=== PATIENT | female | born 1985 | race Caucasian/White ===

== ENCOUNTER 2016-11-23 06:38 | Inpatient (IN) | payer MEDICAID, OTHER ==
[~2016-11-23] VITALS: Wt 47.2 kg
[2016-11-23] VITALS (18 sets, daily range): BP systolic 91–120; BP diastolic 54–81; PULSE 50–56; RESP 12–20; TEMP 98.5
[~2016-11-23 06:38] MED LIST: PNV1TABL4 PO
[2016-11-23] MEDS ORDERED: ONDANSETRON 4 MG INJ IV STA ×2 (07:19→10:43)
[2016-11-23] MEDS ORDERED: morphine 4 MG/ML VIAL IV STA ×2 (07:19→10:42)
[2016-11-23] MEDS ORDERED: SOD CHLORIDE 0.9% 1,000 ML IV STA ×2 (07:19→10:14)
[2016-11-23 07:57] LABS: BASOPHILS % 0.2 % (0.0-2.0); EOSINOPHILS % 0.1 % (0.0-7.0); HEMATOCRIT 37.9 % (37.0-47.0); HEMOGLOBIN 12.7 g/dl (12.0-16.0); LYMPHOCYTES # 0.9 10^3/ul (0.8-2.9); LYMPHOCYTES % 6.8 % (15.0-51.0); MEAN CORPUSCULAR HEMOGLOBIN 30.6 pg (29.0-33.0); MEAN CORPUSCULAR HGB CONC 33.5 g/dl (32.0-37.0); MEAN CORPUSCULAR VOLUME 91.2 fl (82.0-101.0); MEAN PLATELET VOLUME 8.1 fl (7.4-10.4); MONOCYTE # 0.6 10^3/ul (0.3-0.9); MONOCYTES % 4.9 % (0.0-11.0); PLATELET COUNT 269 10^3/UL (140-440); RED BLOOD COUNT 4.16 10^6/ul (4.20-5.40); UNCORRECTED WBC 12.5 10^3/ul (4.8-10.8); WHITE BLOOD COUNT 12.5 10^3/ul (4.8-10.8)
[2016-11-23 08:00] LABS: CONDITION 1
[2016-11-23 08:03] LABS: ALBUMIN 4.3 g/dl (3.3-4.9)
[2016-11-23 08:04] LABS: POTASSIUM 4.4 mmol/L (3.5-5.1)
[2016-11-23 08:06] LABS: ALBUMIN/GLOBULIN RATIO 1.19; BILIRUBIN,INDIRECT 0.5 mg/dl (0-1.1); BILIRUBIN,TOTAL 0.5 mg/dl (0.2-1.3); CREATININE 0.56 mg/dl (0.44-1.00); TOTAL PROTEIN 7.9 g/dl (6.1-8.1)
[2016-11-23 08:07] LABS: CALCIUM 9.5 mg/dl (8.4-10.2)
--- NOTE | 2016-11-23 09:43 | RADRPT ---
PROCEDURE: CT Abdomen and Pelvis without contrast. CLINICAL INDICATION: Abdominal pelvic pain. Vomiting. TECHNIQUE: CT scan of the abdomen and pelvis without contrast was performed on a multidetector hig h-resolution CT scanner. The patient was scanned without intravenous contrast. Coronal and sagittal reformatted images were obtained from the axial source images. Images were reviewed on a high-resol [employer] PACS workstation. The total exam CTDI equals 5.20 mGy and the total exam DLP equals 254.80 mGy -cm. One or more of the following dose reduction techniques were used: - Automated exposure control. - Adjustment of the mA and/or kV according to patient size. - Use of iterative reconstruction technique. COMPARISON: None. FINDINGS: CT abdomen: Study is limited due to lack of oral and IV contrast. The lung bases are clear. The heart size is normal, without pericardial thickening or effusion. Th e liver is normal in size and density without focal mass or intrahepatic biliary dilatation. The sp douglas is normal in size and homogeneous in density. The stomach is partially collapsed, but is gross ly unremarkable. The pancreas as visualized is normal. The gallbladder and biliary tree are unrema rkable and there is no evidence for biliary dilatation. The adrenal glands are symmetric and normal . The kidneys are symmetrically unremarkable as well. No renal calculus or obstructive uropathy or mass lesion is seen. The aorta is of normal caliber. Aortic vascular calcifications are present. There is no retroperit gardner lymphadenopathy. The jade hepatis region is clear. The bowel and mesentery, as visualized, are equally unremarkable. CT pelvis: The small bowel loops situated within the pelvis are unremarkable. Retrocecal appendix is identified which is minimally thickened and inflamed with minimal nas-appendiceal inflammatory changes. Find ings are consistent with early acute appendicitis. Again, evaluation is suboptimal due to lack of o ral and IV contrast. The pelvic organs are normal. The pelvic sidewalls and inguinal regions are cl ear. The sigmoid colon and rectum are unremarkable. No mass or adenopathy is seen. Minimal layerin g free fluid is present. No acute inflammation is identified at this time. The surrounding osseous structures are unremarkable. No osteolytic or osteoblastic lesion is detect ed. IMPRESSION: 1. Findings consistent with acute retrocecal appendicitis. 2. Mild free fluid seen layering within the pelvis. RPTAT: HMJB .Eugenio Liriano MD, MD Date Time Electronically viewed and signed by .Eugenio Liriano MD, MD on 11/23/2016 09:42 .B/
--- NOTE | 2016-11-23 10:02 | ERA ---
ER Documentation Chief Complaint Date/Time DATE: 11/23/16 TIME: 09:57 Chief Complaint Abdominal pain that started last night HPI 31-year-old female with no significant past medical history presents to the ED complaining of right and left lower quadrant pain that started last night. States that it is associated with a few episodes of nonbilious nonbloody vomiting. States that she was experiencing discomfort at 8 PM last night and started to have worsening pain at 1 AM. Pain does not radiate. Unsure what makes it worse. Describes the pain as an achy, sharp pain and rates it a 9 out of 10. States that her last menses was on November 05, 2015. Denies any flank pain, dysuria, urgency, frequency, hematuria, diarrhea, chest pain, shortness of breath, weakness, dizziness, vaginal discharge, vaginal bleeding. ROS All systems reviewed and are negative except as per history of present illness. Medications Home Meds Reported Medications Pnv Cmb#95/Ferrous Fumarate/Fa ( MULTIVITAMINS TABLET) 1 Each Tablet, 1 EACH PO 09/04/13 Allergies Allergies: Coded Allergies: No Known Allergies (Verified Allergy, 09/04/13) PMhx/Soc Medical and Surgical Hx: pt denies Medical Hx, pt denies Surgical Hx History of Surgery: No Anesthesia Reaction: No Hx Neurological Disorder: No Hx Respiratory Disorders: No Hx Cardiac Disorders: No Hx Psychiatric Problems: No Hx Miscellaneous Medical Probl: No Hx Alcohol Use: No Hx Substance Use: No Hx Tobacco Use: No Smoking Status: Never smoker Physical Exam Vitals Vital Signs Date Time Temp Pulse Resp B/P Pulse Ox O2 Delivery O2 Flow Rate FiO2 11/23/16 06:43 98.5 73 20 99/56 98 Physical Exam Const: Fol-fwb-[id number], well-nourished. In no acute distress. Head: Atraumatic, normocephalic Eyes: Normal Conjunctiva without injection. No purulent discharge. ENT: Normal external ear, nose. Moist oropharynx without tonsillar exudates. Non -erythematous pharynx. Uvula midline. No drooling. No trismus. Neck: No cervical midline tenderness. Full range of motion. No meningismus. No cervical lymphadenopathy. No JVD. Resp: Clear to auscultation bilaterally. No wheezing, rhonchi, rales, or crackles. No accessory muscle use. No retractions. Cardio: Regular rate and rhythm. No murmurs, rubs or gallops. Abd: Soft, tenderness to palpation of the right and left lower quadrant, non distended. Normal bowel sounds. No palpable masses. Slight rebound tenderness. No guarding. Positive McBurney's point. Positive psoas sign. Positive obturator sign. Skin: No petechiae or rashes Back: No midline tenderness. No CVA tenderness. Ext: No cyanosis, or edema. Neur: Awake and alert. Normal gait. Normal coordination. Psych: Normal Mood and Affect Result Diagram: 11/23/1672011/23/16720 Results 24 hrs Laboratory Tests Test 11/23/16 07:21 Alanine Aminotransferase (ALT/SGPT) 22IU/L Albumin 4.3g/dl Albumin/Globulin Ratio 1.19 Alkaline Phosphatase 41IU/L Anion Gap 17 Aspartate Amino Transf (AST/SGOT) 39IU/L Basophils # 0.010^3/ul Basophils % 0.2% Blood Urea Nitrogen 12mg/dl Calcium Level 9.5mg/dl Carbon Dioxide Level 28mmol/L Chloride Level 101mmol/L Creatinine 0.56mg/dl Direct Bilirubin 0.00mg/dl Eosinophils # 0.010^3/ul Eosinophils % 0.1% Globulin 3.60g/dl Glucose Level 93mg/dl Hematocrit 37.9% Hemoglobin 12.7g/dl Indirect Bilirubin 0.5mg/dl Lipase 55U/L Lymphocytes # 0.910^3/ul Lymphocytes % 6.8% Mean Corpuscular Hemoglobin 30.6pg Mean Corpuscular Hemoglobin Concent 33.5g/dl Mean Corpuscular Volume 91.2fl Mean Platelet Volume 8.1fl Monocytes # 0.610^3/ul Monocytes % 4.9% Neutrophils # 11.010^3/ul Neutrophils % 88.0% Nucleated Red Blood Cells # 0.010^3/ul Nucleated Red Blood Cells % 0.0/100WBC Platelet Count 53215^3/UL Potassium Level 4.4mmol/L Red Blood Count 4.1610^6/ul Red Cell Distribution Width 12.0% Sodium Level 142mmol/L Total Bilirubin 0.5mg/dl Total Protein 7.9g/dl White Blood Count 12.510^3/ul Current Medications Medications (Trade) Dose Ordered Sig/Cynthia Route PRN Reason Start Time Stop Time Status Last Admin Dose Admin Sodium Chloride (NS) 1,000 ml @ 1,000 mls/hr Q1H STAT IV 11/23/16 07:19 11/23/16 08:18 DC 11/23/16 07:33 Morphine Sulfate (morphine) 4 mg ONCE STAT IV 11/23/16 07:19 11/23/16 07:21 DC 11/23/16 07:32 Ondansetron HCl 4 mg 4 mg ONCE STAT IV 11/23/16 07:19 11/23/16 07:21 DC 11/23/16 07:32 Ceftriaxone Sodium 50 ml @ 100 mls/hr ONCE ONCE IVPB 11/23/16 10:30 11/23/16 10:59 Sodium Chloride (NS) 1,000 ml @ 1,000 mls/hr Q1H STAT IV 11/23/16 10:14 11/23/16 11:13 Procedures/MDM 31-year-old female with no significant past medical history presents to the ED complaining of left and right lower quadrant pain. Patient is afebrile and nontoxic-appearing. Patient has normal vital signs. Patient was further worked up with CBC, CMP, lipase, UA, urine , CT of the abdomen and pelvis without contrast. Patient's pain and symptoms have improved after treatment with 4 mg IV morphine, 4 mg IV Zofran, 1 L normal saline. A differential diagnosis considered includes but is not limited to gastritis, GERD, peptic ulcer disease, cholecystitis, choledocholithiasis, cholangitis, pancreatitis, appendicitis, bowel obstruction, ileus, volvulus, nephrolithiasis , pyelonephritis, hepatitis, perforated viscus, diverticulitis, abdominal hernia , acute abdomen, mesenteric ischemia or other emergent conditions. CBC: Slight leukocytosis of 12.5. No e/o anemia. CMP: No e/o severe acidosis, alkalosis, renal failure, diabetic ketoacidosis, liver disease Lipase within normal limits. Urine : Negative PROCEDURE: CT Abdomen and Pelvis without contrast. CLINICAL INDICATION: Abdominal pelvic pain. Vomiting. TECHNIQUE: CT scan of the abdomen and pelvis without contrast was performed on a multidetector high-resolution CT scanner. The patient was scanned without intravenous contrast. Coronal and sagittal reformatted images were obtained from the axial source images. Images were reviewed on a high-resolution PACS workstation. The total exam CTDI equals 5.20 mGy and the total exam DLP equals 254.80 mGy-cm. One or more of the following dose reduction techniques were used: - Automated exposure control. - Adjustment of the mA and/or kV according to patient size. - Use of iterative reconstruction technique. COMPARISON: None. FINDINGS: CT abdomen: Study is limited due to lack of oral and IV contrast. The lung bases are clear. The heart size is normal, without pericardial thickening or effusion. The liver is normal in size and density without focal mass or intrahepatic biliary dilatation. The spleen is normal in size and homogeneous in density. The stomach is partially collapsed, but is grossly unremarkable. The pancreas as visualized is normal. The gallbladder and biliary tree are unremarkable and there is no evidence for biliary dilatation. The adrenal glands are symmetric and normal. The kidneys are symmetrically unremarkable as well. No renal calculus or obstructive uropathy or mass lesion is seen. The aorta is of normal caliber. Aortic vascular calcifications are present. There is no retroperitoneal lymphadenopathy. The jade hepatis region is clear. The bowel and mesentery, as visualized, are equally unremarkable. CT pelvis: The small bowel loops situated within the pelvis are unremarkable. Retrocecal appendix is identified which is minimally thickened and inflamed with minimal nas-appendiceal inflammatory changes. Findings are consistent with early acute appendicitis. Again, evaluation is suboptimal due to lack of oral and IV contrast. The pelvic organs are normal. The pelvic sidewalls and inguinal regions are clear. The sigmoid colon and rectum are unremarkable. No mass or adenopathy is seen. Minimal layering free fluid is present. No acute inflammation is identified at this time. The surrounding osseous structures are unremarkable. No osteolytic or osteoblastic lesion is detected. IMPRESSION: 1. Findings consistent with acute retrocecal appendicitis. 2. Mild free fluid seen layering within the pelvis. Patient has acute retrocecal appendicitis noted on her CT scan. Leukocytosis of 12.5 noted. This case was discussed with my supervising physician, Dr. Heaton. We both agreed that patient needed to be admitted at this time. These findings were discussed with the patient at this time. Patient agreed to be admitted. Her questions were answered. Patient is hemodynamically stable. Patient will now be under the care of Dr. Heaton. Departure Diagnosis: Primary Impression: Appendicitis Qualified Code: K35.80 - Acute appendicitis, unspecified acute appendicitis type Condition: NEIL Kraus PA-C Nov 23, 2016 10:02
[2016-11-23 10:25] LABS: ADD UMIC YES; URINE BILIRUBIN (Dip) NEGATIVE (NEGATIVE); URINE BLOOD (Dip) NEGATIVE (NEGATIVE); URINE COLOR LT. YELLOW (YELLOW); URINE GLUCOSE (Dip) NEGATIVE (NEGATIVE); URINE KETONES (Dip) 40 (NEGATIVE); URINE LEUKOCYTE ESTERASE (Dip) NEGATIVE (NEGATIVE); URINE NITRITE (Dip) NEGATIVE (NEGATIVE); URINE TOTAL PROTEIN (Dip) TRACE (NEGATIVE); URINE UROBILINOGEN (Dip) 0.2 E.U./dL (0.1-1.0)
[2016-11-23] MEDS ORDERED: SOD CHLORIDE 0.9% 1,000 ML IV SCH (10:30)
[2016-11-23] MEDS ORDERED: ACETAMINOPHEN 325 MG TAB PO PRN ×2 (10:30→11:30)
[2016-11-23] MEDS ORDERED: ONDANSETRON 4 MG INJ IV PRN ×3 (10:30→17:30)
[2016-11-23] MEDS ORDERED: CEFTRIAXONE 1 GM/50 ML (PMX) 50 ML IVPB ONE (10:30)
--- NOTE | 2016-11-23 10:32 | EN ---
Date/Time of Note Date/Time of Note DATE: 11/23/16 TIME: 10:32 ER Progress Note I was told by the patient in ER to with appendicitis. This patient is hemodynamically stable. I have contacted our admitting physician, Dr. De Luna who is okay with the admission. The surgeon is Dr. Marshall. This patient is scheduled for OR today at 4 PM. She will be kept n.p.o. She was given Rocephin. Patient and family are aware. BARBIE SALDANA DO Nov 23, 2016 10:32
[2016-11-23 10:58] LABS: SQUAMOUS EPITHELIAL CELL,UR FEW; URINE RBCS NONE SEEN /HPF (0)
[2016-11-23] MEDS ORDERED: ACETAMINOPHEN 650 MG SUPP PR PRN (11:30)
[2016-11-23] MEDS ORDERED: DOCUSATE SODIUM 100 MG CAP PO PRN ×3 (11:30→17:30)
[2016-11-23] MEDS ORDERED: morphine 2 MG INJ IV PRN (11:30)
[2016-11-23] MEDS ORDERED: NACL 0.9% 3 ML SYG IV SCH (11:30)
[2016-11-23] MEDS: DEXTROSE 5%-0.45% NACL 1,000 ML IV SCH ×2 (13:15→21:25)
[2016-11-23] MEDS ORDERED: CEFAZOLIN 1 GM/50 ML (PMX) 50 ML IVPB SCH (14:00)
--- NOTE | 2016-11-23 14:54 | CONS ---
Date/Time of Note Date/Time of Note DATE: 11/23/16 TIME: 14:46 Assessment/Plan Assessment/Plan Additional Assessment/Plan [facility] INITIAL INPATIENT CONSULTATION NOTE ASSESSMENT AND PLAN: A very-pleasant otherwise health 31-year-old lady, presenting with what appears to be acute appendicitis. I recommended laparoscopic, possible open, appendectomy. I explained the operation as well as the rationale behind my management to the patient and her and answered all of their questions to the best my ability. I believe that they understand and wish to proceed. With above assessment, I've recommended the followin. To the operating room for laparoscopic, possible open appendectomy Thank you very much for having me involved in the care of this very pleasant lady and her wonderful family. I will continue to follow her along with you closely and will be available to answer any questions at [phone]. TOTAL VISIT TIME: 45 minutes of which more than half was spent in [id number] discussion with the patient, discussions with family, as well as coordination of care between multiple physicians and providers. Disclaimer: Inadvertent spelling and grammatical errors are likely due to EHR/ dictation software use and do not reflect on the quality of delivered patient care. Also, please note that the electronic time recorded on this node does not necessarily reflect the actual time of the visit. PLACE OF SERVICE: [facility], sixth floor DATE OF CONSULTATION: 11/23/2016 HISTORY OF PRESENT ILLNESS: The patient is a very pleasant otherwise healthy 31 -year-old lady, admitted to [facility] through ED with RLQ abdominal pain of a few hours duration; + N/V; no other major complaints; no prior episodes; no prior abdominal surgery, but no issues with post operative complications after liposuction and L wrist surgery. No blood in the stool or urine. Workup included laboratory values showing elevated white blood cell count and a CT scan that showed evidence for appendicitis. Patient does not report any hematemesis or blood in the stool or urine. Last bowel movement was yesterday as well as flatus. No reported chronic issues with constipation or diarrhea. No changes in hearing or vision, difficulty with breathing or swallowing, prior cardiopulmonary disease new skin rashes, joint pain, musculoskeletal disease, neurologic, psychiatric, or psychologic problems. Patient described the pain as a localized RLQ type pain without radiation, between 8 to 10 out of 10 in severity and mostly dull in character. At my visit, the patient did have significant pain complaints. No major EtOH. No prior biliary problems. No prior pancreatitis. PAST MEDICAL HISTORY None PAST SURGICAL HISTORY 1. L wrist surgery for trauma in 4th grade 2. Liposuction ALLERGIES: NO KNOWN DRUG ALLERGIES MEDICATIONS None SOCIAL HISTORY: The patient lives with and 3 y/o child. 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 - Tob; - ETOH; - IVDU FAMILY HISTORY: There are no significant medical, surgical or oncologic issues in the family as reported by the patient or reflected in the chart. REVIEW OF SYSTEMS: No other pertinent positives or pertinent negatives in a complete 14 point review of systems PHYSICAL EXAMINATION GENERAL: The patient appears to be a very pleasant AsianAmerican lady of Non- descent lying in bed, appearing stated age, BMI unavailable, but fairly fit (~20) and otherwise in no acute distress. VITAL SIGNS: AVSS (please also see below) HEENT: Normocephalic and atraumatic. Extraocular muscles and hearing are grossly intact bilaterally and symmetrically. Sclerae are nonicteric. Oral cavity is clear; oral mucosa appear to be pink and moist. Dentition: fair. NECK: Supple. There is no lymphadenopathy or JVD. There is no submental, submandibular or supraclavicular lymphadenopathy. CHEST: Rises symmetrically with each breath; patient is breathing comfortably. There are no audible wheezes, rales or rhonchi on the gross exam. HEART: Pulse is regular and palpable on the right wrist. Capillary refill is normal. Carotid pulses are palpable bilaterally and symmetrically in the neck. EXTREMITIES: Lower extremities contain no pitting edema around the ankles bilaterally and symmetrically. ABDOMEN: Abdomen is soft, mild to moderately tender in the RLQ abdomen and nondistended. No evidence of ascites, organomegaly, caput medusae, engorged subcutaneous veins, or other abnormalities. There are no peritoneal signs or guarding. SKIN: Appears to be pink and feels warm to touch. NEUROLOGIC: Awake, alert, and follows commands appropriately. LABORATORY DATA: See below IMAGING: See electronic chart. Please note that I've personally reviewed all pertinent available images and I agree in general with their overall reported findings. Consultation Date/Type/Reason Admit Date/Time Nov 23, 2016 at 10:31 Social History Smoking Status: Never smoker Exam/Review of Systems Vital Signs Vitals Vital Signs Date Time Temp Pulse Resp B/P Pulse Ox O2 Delivery O2 Flow Rate FiO2 11/23/16 11:40 98.5 53 20 85/52 100 Room Air Results Result Diagram: 11/23/16 0721 11/23/16 0721 Results 24 hrs Laboratory Tests Test 11/23/16 07:21 11/23/16 09:19 Alanine Aminotransferase (ALT/SGPT) 22 Albumin 4.3 Albumin/Globulin Ratio 1.19 Alkaline Phosphatase 41 L Anion Gap 17 H Aspartate Amino Transf (AST/SGOT) 39 Basophils # 0.0 Basophils % 0.2 Blood Urea Nitrogen 12 Calcium Level 9.5 Carbon Dioxide Level 28 Chloride Level 101 Creatinine 0.56 Direct Bilirubin 0.00 Eosinophils # 0.0 Eosinophils % 0.1 Globulin 3.60 H Glucose Level 93 Hematocrit 37.9 Hemoglobin 12.7 Indirect Bilirubin 0.5 Lipase 55 Lymphocytes # 0.9 Lymphocytes % 6.8 L Mean Corpuscular Hemoglobin 30.6 Mean Corpuscular Hemoglobin Concent 33.5 Mean Corpuscular Volume 91.2 Mean Platelet Volume 8.1 Monocytes # 0.6 Monocytes % 4.9 Neutrophils # 11.0 H Neutrophils % 88.0 H Nucleated Red Blood Cells # 0.0 Nucleated Red Blood Cells % 0.0 Platelet Count 269 Potassium Level 4.4 Red Blood Count 4.16 L Red Cell Distribution Width 12.0 Sodium Level 142 Total Bilirubin 0.5 Total Protein 7.9 White Blood Count 12.5 H Urine Bilirubin NEGATIVE Urine Clarity CLEAR Urine Color LT. YELLOW Urine Glucose NEGATIVE Urine Hemoglobin NEGATIVE Urine Ketones 40 Urine Leukocyte Esterase NEGATIVE Urine Microscopic RBC NONE SEEN Urine Microscopic WBC 0-2 Urine Nitrite NEGATIVE Urine Specific Moffat 1.015 Urine Squamous Epithelial Cells FEW Urine Total Protein TRACE Urine Urobilinogen 0.2 E.U./dL Urine pH 8.5 Medications Medications Current Medications Dextrose/Sodium Chloride (D5-1/2ns) 1,000 ml @ 100 mls/hr Q10H IV Last administered on 11/23/16t 13:15; Admin Dose 100 MLS/HR; Start 11/23/16 at 11:25 Ondansetron HCl (Zofran Inj) 4 mg Q6H PRN IV NAUSEA AND/OR VOMITING; Start at 11:30 Acetaminophen (Tylenol Tab) 650 mg Q6H PRN PO PAIN LEVEL 1-3 OR FEVER; Start at 11:30 Acetaminophen (Tylenol Supp) 650 mg Q6H PRN CO PAIN LEVEL 1-3 OR FEVER; Start 11/23/16 at 11:30 Morphine Sulfate (morphine) 2 mg Q4H PRN IV SEVERE PAIN LEVEL 7-10; Start 11/23 at 11:30 Docusate Sodium (Colace) 100 mg Q12H PRN PO CONSTIPATION; Start 11/23/16 at 11: 30 Pantoprazole 40 mg 40 mg DAILY@06 PO ; Start 11/24/16 at 06:00 Cefazolin Sodium (Ancef 1 Gm/50 ml (Pmx)) 50 ml @ 100 mls/hr Q8 IVPB ; Start at 14:00 ELVIN CEE M.D. Nov 23, 2016 14:54
[2016-11-23] MEDS ORDERED: PROPOFOL 20 ML ONE (15:16)
[2016-11-23] MEDS ORDERED: CEFAZOLIN 1 GM INJ ONE (15:16)
[2016-11-23] MEDS ORDERED: LIDOCAINE 2% (SDV) 5 ML INJ ONE (15:16)
[2016-11-23] MEDS ORDERED: ROCURONIUM 50 MG INJ ONE (15:16)
[2016-11-23] MEDS ORDERED: MIDAZOLAM 1 MG/ML 2 ML INJ ONE (15:16)
[2016-11-23] MEDS ORDERED: SUCCINYLCHOLINE CHLORIDE 100 MG/5 ML SYG IV ONE (15:16)
[2016-11-23] MEDS ORDERED: FENTAnyl 50 MCG/ML VIAL ONE (15:17)
[2016-11-23] MEDS ORDERED: ONDANSETRON 4 MG INJ ONE (16:07)
[2016-11-23] MEDS ORDERED: DEXAMETHASONE 4 MG/ML 1 ML INJ ONE (16:07)
[2016-11-23] MEDS ORDERED: PHENYLephrine (100 MCG/ML) 5ML SYG ONE (16:07)
[2016-11-23] MEDS ORDERED: GLYCOPYRROLATE 1 MG INJ ONE (16:09)
[2016-11-23] MEDS: BUPIVACAINE 0.25%/EPI (SDV) 30 ML INJ ONE ×2 (16:37→17:01)
[2016-11-23] MEDS ORDERED: NEOSTIGMINE 3 MG/3 ML SYRINGE ONE (16:40)
--- NOTE | 2016-11-23 17:10 | HP ---
DATE OF ADMISSION: 11/23/2016 MARKETING SERVICES SPECIALIST: General surgery. CHIEF COMPLAINT: Abdominal pain. HISTORY OF PRESENT ILLNESS: This is a 31-year-old female with no significant past medical history w rosangela presents to [facility] secondary to having 1 day of abdominal pain which starte d yesterday evening. The pain is at the right lower quadrant, nonradiating, accompanied with nausea and several episodes of vomiting. The patient is status post having abdominal pain. She consumed some yogurt which then she vomited yogurt. She continued to complain of having abdominal discomfort and presented to [facility] where she was found to have WBC of 12.5. CT abdomen and pelvis showed acute rectocele, appendicitis, mild free fluid layering within the pelvis. The pa tient was started on Rocephin, morphine, Zofran, Tylenol, and normal saline in the course of the [place] rgency room. General surgery was consulted, and the patient was admitted to med/surg. The patient continued to complain of having mild abdominal discomfort without any nausea or vomiting. She denie s any fever, chills, weight gain, or weight loss. Positive for decreased oral intake. No dysuria, hematuria, urgency, incontinence. No change in the color of stool. No recent travel history. No s ick contact. No trauma to the abdomen. No other discomfort. PAST MEDICAL HISTORY: As above per HPI. PAST SURGICAL HISTORY: None. MEDICATIONS: Multivitamin. SOCIAL HISTORY: Negative x3 with smoking, alcohol, illicit drugs. She lives at home with her howie minaya and her . REVIEW OF SYSTEMS: As above per HPI. Otherwise, 12 review of systems has been found to be negative . PHYSICAL EXAMINATION: VITAL SIGNS: Temperature 98.1, pulse 50, respiration 20, blood pressure 92/57, oxygen saturation 10 0% on room air. GENERAL APPEARANCE: The patient is lying in bed comfortably without any distress. She is awake, al ert, oriented. She is able to answer my questions properly. EYES AND ENT: Conjunctivae and lids are normal. Pupils are normal. Extraocular normal. Hearing g rossly normal. Lips are normal. Oral mucosa is dry. NECK: Supple. Trachea is midline. No lymphadenopathy. RESPIRATORY: Effort is normal. Clear to auscultate bilaterally. CARDIOVASCULAR: Normal S1, S2. Regular rhythm and rate. No murmur, no bruits, no edema. Peripher al pulses and radial pulses palpable. Cap refill is normal. CHEST: Normal expansion of thorax during inspiration. GASTROINTESTINAL: Abdomen is soft. Tenderness in the umbilical and right lower quadrant with deep palpation. No guarding, no rebound. GENITOURINARY: Deferred. MUSCULOSKELETAL: Upper and lower extremities within normal limits. Full range of motion, strength 5/5 in both upper and lower extremities. NEUROLOGIC: Cranial nerves II through XII are grossly intact. PSYCHIATRIC: Normal judgment and insight. Alert and oriented x3. Mood and affect is normal. LABORATORY WORK AND IMAGING: WBC 12.5, hemoglobin 10.6, hematocrit 37.9, platelets 269. Sodium 142 , potassium 4.4, chloride 101, bicarbonate 28, BUN 12, creatinine 0.56, glucose 93. LFTs all within normal limits. Urinalysis negative. ASSESSMENT AND PLAN: 1. Acute appendicitis. General surgery has been consulted. The patient has been n.p.o. The patie nt has been treated with Rocephin in the course of the emergency room. We will place the patient on Ancef q. 8 hours. The patient has been set up for laparoscopic versus open appendectomy by general surgery. We will place the patient on pain medication. 2. For deep venous thrombosis prophylaxis, on sequential compression devices. 3. For gastrointestinal prophylaxis, on proton pump inhibitor. 4. We will continue to monitor patient closely. Further recommendations, management, and treatment as per the course. Total amount of time was spent for evaluation of patient and admission workup, 35 minutes. Dictated By: ZEHRA SINGH/LEXIE Conf#: [id number] DID#: [id number]
--- NOTE | 2016-11-23 17:19 | OPR ---
Date/Time of Note Date/Time of Note DATE: 11/23/16 TIME: 17:18 Operative Report Operative Findings [facility] INPATIENT OPERATIVE NOTE PLACE OF SERVICE: [facility] DATE OF SURGERY: 11/23/2016 PREOPERATIVE DIAGNOSIS: 1. Acute appendicitis 2. L wrist surgery for trauma in 4th grade 3. Liposuction POSTOPERATIVE DIAGNOSIS: 1. Acute appendicitis 2. L wrist surgery for trauma in 4th grade 3. Liposuction OPERATION: 1. Laparoscopic appendectomy SURGEON: Elvin Cee M.D. [employer]LEMENT[employer] SCHOOL TEACHER: Yamileth ANESTHESIA: General endotracheal tube anesthesia ANESTHESIOLOGIST: Kian Quinones M.D. BRIEF SUMMARY: An otherwise uncomplicated laparoscopic appendectomy was performed with findings of non-perforated appendicitis. BRIEF HISTORY: The patient is a very pleasant and otherwise healthy 31-year-old lady, presenting with what appears to be acute appendicitis. I recommended laparoscopic, possible open, appendectomy. I met with the patient and family and counseled them regarding the possible options of treatment, and I strongly suggested a laparoscopic, possible open appendectomy. We reviewed the operation in detail as well as the risks, benefits, alternatives, and expected outcomes of this operation. After careful consideration of all the risks, benefits, and alternatives, the patient and family appeared to understand those risks and wished to proceed with surgery. For a detailed report of my consultation with patient and family, please refer to my separate consultation note. STATEMENT OF THE INFORMED CONSENT: The patient and family appeared to understand the risks of the operation to include, but not be limited to risk of postoperative pain and scar tissue, possible infection or bleeding requiring other interventions such as opening the wound, placement of drainage catheters, or other operative interventions; possible injury to surrounding to structures including bowel, bladder, bile duct, or blood vessels, or solid organs such as liver, kidney, or pancreas requiring other interventions or procedures; possible leakage of bowel from anastomotic sites or suture lines causing significant increase in morbidity and mortality and requiring multiple interventions including but not limited to, placement of drainage catheters, imaging studies, as well as operative interventions; possible other source of sepsis such as urinary tract infections or pneumonias, or other sources of potentially life threatening problems such as deep venous thrombus formation causing pulmonary embolism, myocardial arrhythmias and infarctions, and even . After careful consideration of all their options, the patient and family appeared to understand and wished to proceed with surgery. DESCRIPTION OF PROCEDURE: After obtaining informed consent, the patient was brought into the operating room and was placed in a normal supine position, where successful general endotracheal tube anesthesia was performed. Intravenous access was already in place and intravenous antimicrobials had been appropriately chosen and dosed prior to the operation. The patient's abdominal skin was prepped and draped from the nipple line down to the level of the upper thighs in the usual sterile fashion. We then called a surgical time-out where the patient's identification, date of , nature of the operation, allergies , presence of intravenous antimicrobials, presence of needed equipment, and any other concerns were reviewed and agreed upon by all members of the operating room team. We then started the operation by placing a 5 mm skin incision in the left lower quadrant and then introduced a 5 mm [employer] trocar into the peritoneal space, visualizing all the layers of the abdominal wall as we entered. Note that there was no indication of any injury to underlying structures with our entry into the peritoneal space. We insufflated the abdominal cavity to a maximum pressure of 15 mmHg and again inspected the area of insertion and ensured no obvious injury to underlying structures prior to inspecting the abdominal cavity and showing no obvious pus, bowel contents, or other abnormal features. We could not see the appendix very well. We, therefore, injected the future sites of our other trocars with 0.25% Marcaine with epinephrine and placed a 5 mm [employer] trocar into the midline suprapubic area, taking care not to injure the bladder. We also placed a 12 mm trocar in the umbilical midline area, all under direct visualization. With our instruments in place, we had excellent visualization and access to the right lower quadrant. We then identified the appendix, which was inflamed but had a normal base coming out of the cecum. I then went ahead and used judicious amount of cautery as well as mostly blunt dissection to circumferentially isolate the base of the appendix and then transected this using one firing of the white load of the Endo -YARED stapler. We also repeated the firing on the mesentery of the appendix and completely disconnected the organ from the colon, delivered this out through the 12 mm trocar site inside of an EndoCatch bag without having to enlarge the fascial defect as well as without contaminating the wound. The specimen was sent to Pathology for further analysis. We then ensured adequate hemostasis and bile stasis, removed all our equipment including the pneumoperitoneum from the abdominal cavity prior to closing the infraumbilical fascia with 1 figure-of- eight 0 Vicryl suture on a UR-6 needle, washing the wounds with copious amounts of normal saline, injecting the initial insertion point of the trocar with 0.25 % Marcaine with epinephrine, and then closing the skin using interrupted 4-0 Monocryl sutures. Light dressing was then applied. At the end of the operation, both the sponge count and needle count were reportedly correct x2. The patient tolerated the procedure without any reported complications. ESTIMATED BLOOD LOSS: Less than 10 mL. BLOOD OR BLOOD PRODUCT TRANSFUSIONS: None to my knowledge. SPECIMENS: 1. Appendix COMPLICATIONS: None. DISPOSITION: Recovery area. Disclaimer: Inadvertent spelling and grammatical errors are likely due to EHR/ dictation software use and do not reflect on the quality of delivered patient care. ELVIN CEE M.D. Nov 23, 2016 17:19
[2016-11-23] MEDS ORDERED: HYDROmorphONE (0.2 MG/ML) 10ML SYG IV PRN ×2 (17:30)
[2016-11-23] MEDS ORDERED: PROCHLORPERAZINE 10 MG INJ IV PRN (17:30)
[2016-11-23] MEDS ORDERED: MEPERIDINE 25 MG INJ IV PRN (17:30)
[2016-11-23] MEDS ORDERED: DIPHENHYDRAMINE 50 MG INJ IV PRN (17:30)
[2016-11-23] MEDS ORDERED: METOCLOPRAMIDE 10 MG INJ IV PRN (17:30)
[2016-11-23] MEDS ORDERED: NA PHOSPHATE/BIPHOS 133 ML ENEMA PR PRN (17:30)
[2016-11-23] MEDS ORDERED: HYDROCODONE/APAP (5/325) TAB PO PRN ×2 (17:30)
[2016-11-23] MEDS ORDERED: FENTAnyl 50 MCG/ML VIAL IV PRN (17:30)
[2016-11-23] MEDS ORDERED: OXYCODONE/ACETAMINOPHEN (5/325) TAB PO PRN (17:30)
[2016-11-23] MEDS ORDERED: HYDROmorphONE 1 MG/ML SYG IV PRN (17:30)
[2016-11-23] MEDS ORDERED: BISACODYL 10 MG SUPP PR PRN (17:30)
[2016-11-23] MEDS: D5W-0.45 NACL + KCL 20 MEQ 1,000 ML IV SCH (18:47)
[2016-11-23] MEDS: HYDROmorphONE 1 MG/ML SYG IV PRN (20:53)
[2016-11-23] MEDS ORDERED: FAMOTIDINE 20 MG TAB PO SCH (21:00)
[2016-11-24] VITALS: BP 91/64; RESP 16
[2016-11-24] MEDS: HYDROmorphONE 1 MG/ML SYG IV PRN (02:47)
[2016-11-24] MEDS: D5W-0.45 NACL + KCL 20 MEQ 1,000 ML IV SCH (05:27)
[2016-11-24] MEDS ORDERED: PANTOPRAZOLE (EC) 40 MG TAB PO SCH (06:00)
[2016-11-24 06:05] LABS: HEMOGLOBIN 10.8 g/dl (12.0-16.0); LYMPHOCYTES # 0.7 10^3/ul (0.8-2.9); LYMPHOCYTES % 10.7 % (15.0-51.0); MEAN CORPUSCULAR HEMOGLOBIN 31.5 pg (29.0-33.0); MEAN CORPUSCULAR HGB CONC 34.8 g/dl (32.0-37.0); MEAN CORPUSCULAR VOLUME 90.4 fl (82.0-101.0); MONOCYTE # 0.4 10^3/ul (0.3-0.9); MONOCYTES % 5.6 % (0.0-11.0); NEUTROPHIL # 5.6 10^3/ul (1.6-7.5); NEUTROPHILS % 83.7 % (39.0-77.0); PLATELET COUNT 229 10^3/UL (140-440); RED BLOOD COUNT 3.43 10^6/ul (4.20-5.40); RED CELL DISTRIBUTION WIDTH 12.3 % (11.5-14.5); UNCORRECTED WBC 6.7 10^3/ul (4.8-10.8); WHITE BLOOD COUNT 6.7 10^3/ul (4.8-10.8)
[2016-11-24 06:10] LABS: POTASSIUM 4.1 mmol/L (3.5-5.1)
[2016-11-24 06:12] LABS: ALBUMIN/GLOBULIN RATIO 1.2; BILIRUBIN,INDIRECT 0.1 mg/dl (0-1.1); BILIRUBIN,TOTAL 0.1 mg/dl (0.2-1.3); CREATININE 0.52 mg/dl (0.44-1.00); TOTAL PROTEIN 5.5 g/dl (6.1-8.1)
[2016-11-24 06:39] LABS: CONDITION 1
[2016-11-24 07:03] LABS: CALCIUM 8.2 mg/dl (8.4-10.2)
[2016-11-24 07:04] LABS: CHOL/HDL RATIO 2.7 RATIO
[2016-11-24] MEDS: DEXTROSE 5%-0.45% NACL 1,000 ML IV SCH (07:25)
[2016-11-24 07:37] VITALS: BP 86/52; RESP 20
[2016-11-24] MEDS ORDERED: ENOXAPARIN 40 MG/0.4 ML SYG SC SCH (09:00)
--- NOTE | 2016-11-24 13:06 | DS ---
Date/Time of Note Date/Time of Note DATE: 11/24/16 TIME: 13:03 Discharge Summary Admission/Discharge Info Admit Date/Time Nov 23, 2016 at 10:31 Discharge Date/Time Final Diagnosis 1. Acute appendicitis, s/p lap appendectomy, stable, follow up with surgery Patient Condition: Stable Procedures lap appendectomy Hx of Present Illness This is a 31-year-old female with no significant past medical history who presents to secondary to having 1 day of abdominal pain which started yesterday evening. The pain is at the right lower quadrant, nonradiating, accompanied with nausea and several episodes of vomiting. The patient is status post having abdominal pain. She consumed some yogurt which then she vomited yogurt. She continued to complain of having abdominal discomfort and presented to where she was found to have WBC of 12.5. CT abdomen and pelvis showed acute rectocele, appendicitis, mild free fluid layering within the pelvis. The patient was started on Rocephin , morphine, Zofran, Tylenol, and normal saline in the course of the emergency room. General surgery was consulted, and the patient was admitted to med/surg. The patient continued to complain of having mild abdominal discomfort without any nausea or vomiting. She denies any fever, chills, weight gain, or weight loss. Positive for decreased oral intake. No dysuria, hematuria, urgency, incontinence. No change in the color of stool. No recent travel history. No sick contact. No trauma to the abdomen. No other discomfort. Hospital Course CT scan indicates acute appendicitis. Patient had lap appendectomy on 11/23/2016 without complication. She will follow up with Dr. Marshall in one week. Home Meds Reported Medications Pnv Cmb#95/Ferrous Fumarate/Fa ( MULTIVITAMINS TABLET) 1 Each Tablet, 1 EACH PO 09/04/13 Follow-up Plan follow up with Dr. Marshall in one week Pending Labs Laboratory Tests Test 11/24/16 04:55 Alanine Aminotransferase (ALT/SGPT) 26IU/L (13-69) Albumin 3.0g/dl (3.3-4.9) Albumin/Globulin Ratio 1.20 Alkaline Phosphatase 35IU/L (42-121) Anion Gap 12 (8-16) Aspartate Amino Transf (AST/SGOT) 20IU/L (15-46) Basophils # 0.010^3/ul (0.0-0.1) Basophils % 0.0% (0.0-2.0) Blood Urea Nitrogen 6mg/dl (7-20) Calcium Level 8.2mg/dl (8.4-10.2) Carbon Dioxide Level 28mmol/L (21-31) Chloride Level 103mmol/L (97-110) Cholesterol Level 114mg/dl (100-200) Cholesterol/HDL Ratio 2.7RATIO Creatinine 0.52mg/dl (0.44-1.00) Direct Bilirubin 0.00mg/dl (0.00-0.20) Eosinophils # 0.010^3/ul (0.0-0.5) Eosinophils % 0.0% (0.0-7.0) Globulin 2.50g/dl (1.3-3.2) Glucose Level 124mg/dl (70-220) HDL Cholesterol 42mg/dl (34-82) Hematocrit 31.0% (37.0-47.0) Hemoglobin 10.8g/dl (12.0-16.0) Indirect Bilirubin 0.1mg/dl (0-1.1) LDL Cholesterol, Calculated 63mg/dl Lymphocytes # 0.710^3/ul (0.8-2.9) Lymphocytes % 10.7% (15.0-51.0) Magnesium Level 2.0mg/dl (1.7-2.5) Mean Corpuscular Hemoglobin 31.5pg (29.0-33.0) Mean Corpuscular Hemoglobin Concent 34.8g/dl (32.0-37.0) Mean Corpuscular Volume 90.4fl (82.0-101.0) Mean Platelet Volume 8.0fl (7.4-10.4) Monocytes # 0.410^3/ul (0.3-0.9) Monocytes % 5.6% (0.0-11.0) Neutrophils # 5.610^3/ul (1.6-7.5) Neutrophils % 83.7% (39.0-77.0) Nucleated Red Blood Cells # 0.010^3/ul (0.0-0.0) Nucleated Red Blood Cells % 0.0/100WBC (0.0-0.0) Platelet Count 40553^3/UL (140-440) Potassium Level 4.1mmol/L (3.5-5.1) Red Blood Count 3.4310^6/ul (4.20-5.40) Red Cell Distribution Width 12.3% (11.5-14.5) Sodium Level 139mmol/L (135-144) Total Bilirubin 0.1mg/dl (0.2-1.3) Total Protein 5.5g/dl (6.1-8.1) Triglycerides Level 45mg/dl (0-149) White Blood Count 6.710^3/ul (4.8-10.8) CINDI RAE MD Nov 24, 2016 13:06
[2016-11-24] MEDS ORDERED: HYDR-3498 PO (13:10)
[2016-11-24] MEDS ORDERED: DOCU-144 PO (13:10)
--- NOTE | 2016-11-24 21:50 | PN ---
Date/Time of Note Date/Time of Note DATE: 11/24/16 TIME: 21:47 Assessment/Plan Lines/Catheters IV Catheter Type (from Nrs): Peripheral IV Assessment/Plan Assessment/Plan [facility] Progress Note Date of Service: 11/24/16 Today's Impression & Plan: Overall doing well post op without major issues. No major wound problems. With above assessment, I've recommended the following for today: 1. Ok to d/c from my standpoint 2. Please include the following in patient's d/c instructions: Please call [phone] if any of fever, nausea, vomiting, discharge from wound , wound redness, increase or sudden pain, blood in stool or vomit, or any other unusual signs or symptoms. Also, please call the same number in a few days to schedule an appointment for your follow up visit. Patient may remove dressings tomorrow. Showers OK starting tomorrow. No swimming , hot tub or bath for 2 weeks. No lifting more than 25 lbs for 8 weeks. Thank you again for your great care of this very pleasant patient and wonderful family. If there are any questions, please feel free to call me at [phone]. TOTAL VISIT TIME: 20 minutes of which more than half was spent in [id number] discussion with the patient, possibly including family, as well as coordination of care between multiple physicians and providers. Disclaimer: Inadvertent spelling or grammatical errors are likely due to EHR/ dictation software use and do not reflect on the overall quality of patient care. Updated Clinical Summary: The patient is a very pleasant and otherwise healthy 31-year-old lady, presenting with what appears to be acute appendicitis. S/p lap appy 11/23/16. Comorbidities: 1. Acute appendicitis 2. L wrist surgery for trauma in 4th grade 3. Liposuction Subjective: No major events or complaints; no major abd pain and under control with medications; no n/v/d; no sob or cp; + flatus; + BM and normal; + activity Objective: Vitals: See below Exam: GENERAL: On exam, the patient was standing up in her room and appeared to be comfortable and in no acute distress. ABDOMEN: Soft, nontender and nondistended. Incision dressings are clean, dry and intact without any evidence of obvious underlying erythema, edema, discharge , or hernia. There are no peritoneal signs or guarding. SKIN: Skin appears to be pink and feels warm to touch. NEUROLOGIC: Patient is awake, alert, and follows commands appropriately. Exam/Review of Systems Vital Signs Vitals Vital Signs Date Time Temp Pulse Resp B/P Pulse Ox O2 Delivery O2 Flow Rate FiO2 11/24/16 07:37 98.0 52 20 86/52 98 11/23/16 18:30 Room Air Intake and Output 11/23/16 11/23/16 11/24/16 15:00 23:00 07:00 Intake Total 50 ml 1180 ml 1760 ml Output Total 5 ml 1800 ml Balance 50 ml 1175 ml -40 ml Results Result Diagram: 11/24/16 0455 11/24/16 0455 ELVIN CEE M.D. Nov 24, 2016 21:50
[2016-11-25] MEDS ORDERED: NA PHOSPHATE/BIPHOS 133 ML ENEMA PR SCH (21:00)
[2016-11-25] MEDS ORDERED: DOCUSATE SODIUM 100 MG CAP PO SCH (21:00)
[2016-11-25] MEDS ORDERED: BISACODYL 10 MG SUPP PR SCH (21:00)
== END 2016-11-24 13:55 | disposition home or self-care (01) | DRG 343 ==
LOC: FTE 06:38 → MS2 10:31
PROVIDERS: ADMIT Family Medicine; ATTEND Family Medicine
PROC: 0DTJ4ZZ Resection of Appendix, Percutaneous Endoscopic Approach (ICD-10-PCS; principal; 2016-11-23 16:30)
DX: K35.80 Unspecified acute appendicitis (principal)
CPT/HCPCS: 36415; 74176; 80053; 80061; 81001; 81003; 83690; 83735; 85025; 96374; 96375; 96376; J0330; J0690; J0696; J1100; J1170; J1650; J2175; J2250; J2270; J2370; J2405; J2710; J3010; J3480; J7030; J7042